=== PATIENT | female | born 2000 | race Caucasian/White ===

== ENCOUNTER 2025-06-12 13:23 | Emergency (ER) | payer OTHER, SELFPAY ==
[2025-06-12 14:11] LABS: #Basophils 0.0 thou/uL (0.0-0.2); #Eosinophils 0.0 thou/uL (0.0-0.7); #Lymphocytes 1.3 thou/uL (1.20-3.40); #Monocytes 0.8 thou/uL (0.11-0.59); #Neutrophils 7.2 thou/uL (1.40-6.50); %Basophils 0.3 % (0.0-1.0); %Eosinophils 0.3 % (0.0-10.0); %Lymphocytes 14.1 % (21.0-51.0); %Monocytes 8.1 % (0.0-10.0); %Neutrophils 77.2 % (42.0-75.0); Hematocrit 38.4 % (36.0-47.0); Hemoglobin 12.9 g/dL (12.0-16.0); Mean Corpuscular Hemoglobin 31.0 pg (27.0-31.0); Mean Corpuscular Volume 92.2 fl (78.0-98.0); Platelet Count 256 10x3/uL (130-400); Red Blood Cell (RBC) Count 4.16 mill/uL (4.20-5.40); White Blood Cell (WBC) Count 9.4 10x3/uL (4.8-10.8)
[2025-06-12] MEDS ORDERED: Metoclopramide HCl 10 MG (2 mL) VIAL ONE ×2 (14:19→19:53)
[2025-06-12 14:29] LABS: ALT (SGPT) 21 U/L (Less than 34); AST (SGOT) 22 U/L (11-34); Albumin 3.8 g/dL (3.1-4.5); Alkaline Phosphatase 47 U/L (40-110); Anion Gap 12 mmol/L (10-20); BUN (Urea Nitrogen) 17 mg/dL (7.0-18.7); Bilirubin, Total 1.3 mg/dL (0.3-1.2); Calc. Creatinine Clearance 0 mL/min (70-130); Calcium 8.7 mg/dL (7.8-10.44); Carbon Dioxide 28 mmol/L (22-29); Chloride 100 mmol/L (98-107); Globulin 3.0 g/dL (2.4-3.5); Glucose 99 mg/dL (70-105); Lipase 9 U/L (8-78); Potassium 2.9 mmol/L (3.5-5.1); Sodium 137 mmol/L (136-145)
[2025-06-12] MEDS ORDERED: Potassium Chloride 20 MEQ (100 mL) BAG ONE ×2 (15:13→23:33)
[2025-06-12] MEDS ORDERED: Ondansetron PF 4 MG/2 ML Vial ONE (17:50)
[2025-06-12 20:06] LABS: Glucose, Urine (Dipstick) Negative (Negative); Leukocyte Trace (Negative); Protein, Urine (Dipstick) 30 mg/dL (Neg-Trace); Specific Gravity, Urine 1.015 (1.005-1.030)
[2025-06-12 20:17] LABS: CAUTI Indications for Culture Dysuria,urgency,freq; RBC/HPF 0-3 HPF (0-3)
[2025-06-12 20:18] LABS: Bacteria/HPF 2+ HPF (None Seen); Urine Culture Reflex No No
== END 2025-06-13 04:26 | disposition short-term general hospital (02) ==
LOC: NAV ERS 13:23
DX: R11.2 Nausea with vomiting, unspecified (principal); J45.909 Unspecified asthma, uncomplicated; F17.210 Nicotine dependence, cigarettes, uncomplicated; Z79.51 Long term (current) use of inhaled steroids
CPT/HCPCS: 71045; 83690; 93005; 96361; 96365; 96366; 96367; 96375; 96376; J2060; J2405; J2765; J3480; J7030

== ENCOUNTER 2025-09-30 10:36 | Emergency (ER) | payer BC, SELFPAY ==
[2025-09-30] MEDS ORDERED: Ondansetron PF 4 MG/2 ML Vial ONE (11:00)
[2025-09-30 11:19] LABS: BHCG - Serum Negative (NEGATIVE); Pregs Control Bar Appear? YES (CONTROL BAR)
[2025-09-30 11:30] LABS: ALT (SGPT) 16 U/L (Less than 34); AST (SGOT) 27 U/L (11-34); Albumin 4.9 g/dL (3.1-4.5); Alkaline Phosphatase 45 U/L (40-110); Anion Gap 20 mmol/L (10-20); BUN (Urea Nitrogen) 16 mg/dL (7.0-18.7); Bilirubin, Total 0.9 mg/dL (0.3-1.2); Calc. Creatinine Clearance 0 mL/min (70-130); Calcium 10.0 mg/dL (7.8-10.44); Carbon Dioxide 25 mmol/L (22-29); Chloride 96 mmol/L (98-107); Globulin 3.7 g/dL (2.4-3.5); Glucose 134 mg/dL (70-105); Lipase 6 U/L (8-78); Potassium 3.2 mmol/L (3.5-5.1); Sodium 138 mmol/L (136-145)
[2025-09-30 11:31] LABS: #Basophils 0.2 thou/uL (0.0-0.2); #Eosinophils 0.0 thou/uL (0.0-0.7); #Lymphocytes 1.1 thou/uL (1.20-3.40); #Monocytes 0.6 thou/uL (0.11-0.59); #Neutrophils 10.3 thou/uL (1.40-6.50); %Basophils 1.3 % (0.0-1.0); %Eosinophils 0.0 % (0.0-10.0); %Lymphocytes 8.9 % (21.0-51.0); %Monocytes 5.0 % (0.0-10.0); %Neutrophils 84.8 % (42.0-75.0); Hematocrit 45.0 % (36.0-47.0); Hemoglobin 16.2 g/dL (12.0-16.0); Mean Corpuscular Hemoglobin 32.8 pg (27.0-31.0); Mean Corpuscular Volume 91.3 fl (78.0-98.0); Platelet Count 283 10x3/uL (130-400); Red Blood Cell (RBC) Count 4.93 mill/uL (4.20-5.40); White Blood Cell (WBC) Count 12.2 10x3/uL (4.8-10.8)
[2025-09-30] MEDS ORDERED: Potassium Bicarbonate/Cit Ac 20 MEQ TAB ONE (11:42)
[2025-09-30] MEDS ORDERED: Pantoprazole 40 MG VIAL ONE (11:42)
== END 2025-09-30 12:45 | disposition home or self-care (01) ==
LOC: NAV ERS 10:36
DX: K29.00 Acute gastritis without bleeding (principal); J45.909 Unspecified asthma, uncomplicated; F17.210 Nicotine dependence, cigarettes, uncomplicated; Z79.51 Long term (current) use of inhaled steroids
CPT/HCPCS: 80053; 83690; 84703; 85025; 96361; 96374; 96375; J2405; J2470; J7030